=== PATIENT | male | born 1975 | race African-American/Black ===

== ENCOUNTER 2021-08-28 20:05 | Emergency (ER) | payer OTHER ==
[~2021-08-28] VITALS: Ht 177.8 cm; Wt 93.9 kg
[2021-08-28] MEDS ORDERED: ACETAMINOPHEN 325 MG TAB PO ONE ×2 (20:35→21:00)
[2021-08-29 03:24] VITALS: BP 149/53
== END 2021-08-29 06:05 | disposition home or self-care (01) ==
LOC: EDBD 20:05 → ER 20:09
DX: S39.012A Strain of muscle, fascia and tendon of lower back, initial encounter (principal); V43.52XA Car driver injured in collision with other type car in traffic accident, initial encounter; Y93.89 Activity, other specified; Y92.89 Other specified places as the place of occurrence of the external cause; Y99.8 Other external cause status
CPT/HCPCS: 72125; 72128; 72131; 73590

== ENCOUNTER 2022-12-05 18:49 | Emergency (ER) | payer SELFPAY ==
[~2022-12-05] VITALS: Ht 177.8 cm; Wt 92.8 kg
[2022-12-05 20:28] VITALS: BP 141/71
[2022-12-05 21:11] LABS: Basophils # (auto) 0.1 10 ^3/uL (0-0.2); Eosinophils # (auto) 0.4 10 ^3/uL (0-0.8); Hematocrit 43.3 % (41.0-53.0); Hemoglobin 14.4 g/dL (13.5-17.5); Lymphocytes % (auto) 33.6 % (10.0-50.0); Mean Corpuscular Hemoglobin 28.3 pg (28.0-32.0); Mean Corpuscular Hgb Conc. 33.2 g/dL (32.0-36.0); Mean Corpuscular Volume 85.3 fL (80.0-100.0); Monocytes # (auto) 0.5 10 ^3/uL (0-1.3); Neutrophils % (auto) 50.4 % (37.0-80.0); Nucleated Red Blood Cells % 0.2 %; Red Blood Cells 5.08 10^6/uL (4.5-5.90); Red Cell Distribution Width 14.9 % (11.8-14.3)
[2022-12-05 21:17] LABS: Urine Bacteria NONE SEEN /hpf (None Seen); Urine Blood Negative /uL (Negative); Urine Mucus FEW (None Seen); Urine Specific Gravity 1.024 (1.001-1.035); Urine WBC 2 /hpf (0 - 3)
[2022-12-05 21:27] LABS: Albumin 3.6 g/dL (3.4-5.0); Calcium 8.7 mg/dL (8.5-10.1)
[2022-12-05 21:32] LABS: BUN/Creatinine Ratio 14.9 (10.0-20.0); Bilirubin, Total 0.3 mg/dL (0.2-1.0); Total Protein 6.9 g/dL (6.4-8.2)
== END 2022-12-05 22:21 | disposition home or self-care (01) ==
LOC: ER 18:49
DX: R10.31 Right lower quadrant pain (principal); L72.0 Epidermal cyst
CPT/HCPCS: 36415; 74176; 80053; 81001; 83690; 85025